=== PATIENT | male | born 1960 | race Caucasian/White ===

== ENCOUNTER 2023-06-18 05:59 | Day surgery (SDC) | payer OTHER ==
[2023-06-18] MEDS: Sodium Chloride 0.9% 1,000 ML IV SCH (07:07)
[2023-06-18] MEDS ORDERED: fentaNYL 250 MCG/5 ML SDV ONE (07:19)
[2023-06-18] MEDS ORDERED: Ondansetron 4 MG/2 ML SDV ONE (07:19)
[2023-06-18] MEDS ORDERED: Dexamethasone 4 MG/ML SDV ONE (07:19)
[2023-06-18] MEDS ORDERED: Rocuronium 50 MG/5 ML Vial ONE (07:19)
[2023-06-18] MEDS ORDERED: Neostigmine Methylsulfate 10 MG/10 ML MDV ONE (07:19)
[2023-06-18] MEDS ORDERED: Propofol 200 MG/20 ML SDV ONE (07:19)
[2023-06-18] MEDS ORDERED: Glycopyrrolate 0.2 MG/ML 5 ML MDV ONE (07:19)
[2023-06-18] MEDS: ceFAZolin 2 GM in Premix Bag 1 BAG IV ONE (07:29)
[2023-06-18] MEDS ORDERED: ePHEDrine 50 MG/ML SDV ONE (08:15)
[2023-06-18] MEDS ORDERED: Sodium Chloride 0.9% 10 ML ONE (08:15)
[2023-06-18] MEDS ORDERED: Atropine 0.4 MG/ML SDV ONE (08:22)
[2023-06-18] MEDS: metroNIDAZOLE/Normal Saline 500 MG in Premix Bag 1 BAG IV ONE (08:29)
[2023-06-18] MEDS: Ropivacaine 40 ML, dexAMETHasone 8 MG, EPINEPHrine 0.4 MG, Sodium Chloride 0.9% 37.6 ML NERVRT SCH (08:30)
[2023-06-18] MEDS: Bupivacaine 0.5%/EPINEPHrine 1:200,000 50 ML MDV ONE (08:44)
[2023-06-18] MEDS ORDERED: Lactated Ringers 1,000 ML ONE (09:10)
[2023-06-18] MEDS: Ibuprofen 400 MG Tab PO ONE (11:01)
[2023-06-18 12:54] VITALS: BP 101/70; PULSE 65
== END 2023-06-18 13:02 | disposition home or self-care (01) ==
LOC: JP.SDS 05:59
PROVIDERS: ATTEND Surgery
DX: K40.30 Unilateral inguinal hernia, with obstruction, without gangrene, not specified as recurrent (principal); E78.5 Hyperlipidemia, unspecified; R73.9 Hyperglycemia, unspecified; Z87.891 Personal history of nicotine dependence; Z79.899 Other long term (current) drug therapy
CPT/HCPCS: 49650; 64488; A9270; C1781; J0171; J0461; J0690; J1100; J1836; J2405; J2704; J2710; J2795; J3010; J3490; J7030; J7120